=== PATIENT | male | born 1930 | race Caucasian/White ===

== ENCOUNTER → 2016-08-11 | Outpatient (CLI) | payer MEDICARE, OTHER ==
[~2016-08-11] MED LIST: CETI10 PO; HYDR10 PO; MAXZ25 PO; QUET25 PO; RANI150T PO; SYNT75TA PO; THIA100T PO; TRIAM.1%T TOP; TRIAM.1%T TOPICAL
[2016-08-11 13:06] LABS: ALT (GPT) 22 U/L (12-78); ANION GAP 5 MEQ/L (5-15); AST (GOT) 24 U/L (15-37); BICARBONATE 26.5 MEQ/L (21.0-32.0); BLOOD UREA NITROGEN 15 MG/DL (7-18); CHLORIDE 106 MEQ/L (98-107); GLOMERULAR FILTRATION RATE 38 ML/MIN (>89); GLUCOSE,FASTING 98 MG/DL (74-99); POTASSIUM 4.9 MEQ/L (3.5-5.1); SODIUM (NA) 137 MEQ/L (136-145)
[2016-08-11 13:51] LABS: ALKALINE PHOSPHATASE 77 U/L (45-117); IMMUNOGLOBULIN A 257 MG/DL (107-591); IMMUNOGLOBULIN G 568 MG/DL (690-1690); IMMUNOGLOBULIN M 14 MG/DL (37-225); KAPPA LAMBDA RATIO 2.18 (1.57-3.93); LAMBDA LIGHT CHAIN 80 MG/DL (90-210); TOTAL BILIRUBIN ADULT 0.4 MG/DL (0.2-1.0); TOTAL PROTEIN SPE 6.6 GM/DL (6.0-7.6)
[2016-08-12 20:38] LABS: ALBUMIN SPE 4.47 GM/DL (3.50-5.00); ALPHA 1 GLOBULIN 0.18 GM/DL (0.11-0.29); ALPHA 2 GLOBULIN 0.67 GM/DL (0.22-1.00); BETA GLOBULINS (SPE) 0.75 GM/DL (0.53-1.03)
== END ==
LOC: OLAB 09:36
PROVIDERS: ATTEND Psychiatry & Neurology Neurology
DX: D47.2 Monoclonal gammopathy (principal)
CPT/HCPCS: 36415; 80053; 82784; 83883; 84165; 86334